=== PATIENT | male | born 2000 | race African-American/Black ===

== ENCOUNTER 2023-10-14 22:24 | Emergency (ER) | payer OTHER ==
[~2023-10-14] VITALS: Ht 182.9 cm; Wt 92.1 kg
[2023-10-14 22:32] VITALS: TEMP 99
[2023-10-14] MEDS: NS 1,000 ML IV ONE (22:49)
[2023-10-14 22:55] LABS: BASO # 0.1 10^3/uL (0.0-0.2); BASO % 0.6 % (0.0-1.0); EOS # 0.5 10^3/uL (0.0-0.5); EOS % 4.9 % (0.0-3.0); HEMATOCRIT 41.1 % (42.0-52.0); LYMPH # 4.1 10^3/uL (1.5-5.0); LYMPH % 37.9 % (24.0-44.0); MEAN CORPUSCULAR HEMOGLOBIN 28.1 pg (27.0-33.0); MEAN CORPUSCULAR HGB CONC 34.1 g/dl (32.0-36.5); MEAN CORPUSCULAR VOLUME 82.5 fl (80.0-96.0); MONO # 0.9 10^3/uL (0.0-0.8); NEUTROPHILS # 5.3 10^3/uL (1.5-8.5); NEUTROPHILS % 48.4 % (36.0-66.0); PLATELET COUNT, AUTOMATED 231 10^3/uL (150-450); RED BLOOD COUNT 4.98 10^6/uL (4.30-6.10); WHITE BLOOD COUNT 10.9 10^3/uL (4.0-10.0)
[2023-10-14 23:23] LABS: LIPASE 81 U/L (12-53)
[2023-10-14 23:25] LABS: ALBUMIN 4.3 G/DL (3.2-5.2); ALKALINE PHOSPHATASE 114 U/L (46-116); ALT/SGPT 34 U/L (7.0-40); AST/SGOT 20 U/L (<34); BILIRUBIN,DIRECT 0.2 MG/DL (<0.4); BILIRUBIN,TOTAL 0.5 MG/DL (0.3-1.2); BLOOD UREA NITROGEN 12 MG/DL (9-23); CALCIUM LEVEL 9.5 MG/DL (8.5-10.1); CARBON DIOXIDE LEVEL 28 MMOL/L (20-31); CHLORIDE LEVEL 104 MMOL/L (98-107); CREATININE FOR GFR 1.06 MG/DL (0.70-1.30); GLOMERULAR FILTRATION RATE > 60.0 (>60); GLUCOSE, FASTING 171 MG/DL (60-100); POTASSIUM SERUM 3.1 MMOL/L (3.5-5.1); SODIUM LEVEL 141 MMOL/L (136-145); TOTAL PROTEIN 7.7 G/DL (5.7-8.2)
[2023-10-14 23:27] LABS: THYROID STIMULATING HORMONE 1.788 uIU/ML (0.55-4.78)
[2023-10-14 23:48] LABS: MAGNESIUM LEVEL 1.7 MG/DL (1.8-2.4)
[2023-10-15 00:23] LABS: AMPHETAMINES LEVEL URINE NEGATIVE (NEGATIVE); BARBITURATES URINE NEGATIVE (NEGATIVE); BENZODIAZEPINES URINE NEGATIVE (NEGATIVE); COCAINE METABOLITE URINE NEGATIVE (NEGATIVE); METHADONE URINE NEGATIVE (NEGATIVE); OPIATES URINE NEGATIVE (NEGATIVE); PHENCYCLIDINE URINE NEGATIVE (NEGATIVE)
[2023-10-15 00:59] LABS: CANNABINOIDS URINE POSITIVE (NEGATIVE)
[2023-10-15] MEDS: ONDANSETRON 4MG 2ML VIAL IV ONE (01:15)
[2023-10-15] MEDS: NS 1,000 ML IV ONE (01:30)
[2023-10-15] MEDS: MAG SULF 1GM/100ML (MAG RUN) 1 GM in IV 1 EA IV ONE (01:31)
[2023-10-15] MEDS: POTASSIUM CHLORIDE 10% LIQ 20MEQ/15ML UDC PO ONE (01:32)
[2023-10-15 02:30] VITALS: BP 116/56; O2SAT 99
== END 2023-10-15 02:44 | disposition home or self-care (01) ==
LOC: M ED 22:24
DX: R00.2 Palpitations (principal); R00.0 Tachycardia, unspecified; E87.6 Hypokalemia; E83.42 Hypomagnesemia; F19.10 Other psychoactive substance abuse, uncomplicated
CPT/HCPCS: 71045; 80048; 80076; 80307; 83690; 83735; 84439; 84443; 85025; 93005; 93041; 94760; 96361; 96365; 96374; 99285; J2405; J3475

== ENCOUNTER 2024-06-27 23:09 | Emergency (ER) | payer OTHER, SELFPAY ==
[2024-06-27 23:14] VITALS: BP 139/76; TEMP 98.7; O2SAT 98
== END 2024-06-28 01:01 | disposition left against medical advice (07) ==
LOC: M ED 23:09
DX: Z53.21 Procedure and treatment not carried out due to patient leaving prior to being seen by health care provider (principal)

== ENCOUNTER 2024-12-08 02:15 | Emergency (ER) | payer SELFPAY ==
[~2024-12-08] VITALS: Ht 182.9 cm; Wt 100.0 kg
[2024-12-08 02:17] VITALS: BP 133/78; TEMP 98.1; O2SAT 98
[2024-12-08 02:35] LABS: BASO # 0.1 10^3/uL (0.0-0.2); BASO % 0.5 % (0.0-1.0); EOS # 0.4 10^3/uL (0.0-0.5); EOS % 3.9 % (0.0-3.0); LYMPH # 4.1 10^3/uL (1.5-5.0); LYMPH % 36.3 % (24.0-44.0); MONO # 0.8 10^3/uL (0.0-0.8); MONO % 7.5 % (2.0-8.0); NEUTROPHILS # 5.7 10^3/uL (1.5-8.5); NEUTROPHILS % 51.4 % (36.0-66.0); PLATELET COUNT, AUTOMATED 313 10^3/uL (150-450)
[2024-12-08 03:04] LABS: CALCIUM LEVEL 9.1 MG/DL (8.5-10.1); CARBON DIOXIDE LEVEL 27 MMOL/L (20-31); CHLORIDE LEVEL 103 MMOL/L (98-107); CK-MB VALUE MASS 1.0 NG/ML (<3.6); CREATININE FOR GFR 0.99 MG/DL (0.70-1.30); GLOMERULAR FILTRATION RATE > 90.0 (>60); POTASSIUM SERUM 3.9 MMOL/L (3.5-5.1); SODIUM LEVEL 141 MMOL/L (136-145)
[2024-12-08 03:08] LABS: CPK CREATINE PHOSPHOKINASE 146 U/L (46-171); MB/CK RELATIVE INDEX 0.68 (< OR =4)
== END 2024-12-08 05:35 | disposition left against medical advice (07) ==
LOC: M ED 02:15
DX: Z53.21 Procedure and treatment not carried out due to patient leaving prior to being seen by health care provider (principal)

== ENCOUNTER 2025-01-24 14:28 | Emergency (ER) | payer OTHER, SELFPAY ==
[~2025-01-24] VITALS: Ht 182.9 cm; Wt 103.6 kg
[2025-01-24 15:38] LABS: BASO # 0.0 10^3/uL (0.0-0.2); BASO % 0.5 % (0.0-1.0); EOS # 0.2 10^3/uL (0.0-0.5); EOS % 2.7 % (0.0-3.0); LYMPH # 1.7 10^3/uL (1.5-5.0); LYMPH % 23.2 % (24.0-44.0); MONO # 0.5 10^3/uL (0.0-0.8); MONO % 6.7 % (2.0-8.0); NEUTROPHILS # 4.9 10^3/uL (1.5-8.5); NEUTROPHILS % 66.6 % (36.0-66.0); PLATELET COUNT, AUTOMATED 284 10^3/uL (150-450)
[2025-01-24 16:06] LABS: CALCIUM LEVEL 10.0 MG/DL (8.5-10.1); CARBON DIOXIDE LEVEL 30 MMOL/L (20-31); CHLORIDE LEVEL 104 MMOL/L (98-107); CREATININE FOR GFR 0.80 MG/DL (0.70-1.30); GLOMERULAR FILTRATION RATE > 90.0 (>60); POTASSIUM SERUM 3.9 MMOL/L (3.5-5.1); SODIUM LEVEL 142 MMOL/L (136-145)
[2025-01-24] MEDS ORDERED: ISOVUE-370 76% 100 ML VIAL As Ordered ONE (17:42)
[2025-01-24] MEDS ORDERED: OMEP40CA4 PO (19:12)
[2025-01-24] MEDS ORDERED: SUCR1TA PO (19:12)
[2025-01-24 19:13] VITALS: O2SAT 98
[2025-01-24 19:29] VITALS: BP 117/62; TEMP 97.9
== END 2025-01-24 19:30 | disposition home or self-care (01) ==
LOC: M ED 14:28
DX: K92.2 Gastrointestinal hemorrhage, unspecified (principal); Z79.899 Other long term (current) drug therapy
CPT/HCPCS: 36415; 74174; 80048; 85025; 99284; Q9967